=== PATIENT | male | born 1970 | race Caucasian/White ===

== ENCOUNTER → 2022-03-19 | Outpatient (CLI) | payer OTHER ==
[2022-03-19 15:28] LABS: BASOPHILS ABSOLUTE AUTO 0.05 K/mm3 (0.00-0.23); BASOPHILS PERCENT AUTO 1 % (0-2); EOSINOPHILS ABSOLUTE AUTO 0.06 K/mm3 (0.00-0.68); EOSINOPHILS PERCENT AUTO 1 % (0-6); Hematocrit 46.4 % (37.0-53.0); Hemoglobin 16.6 g/dL (13.5-17.5); IMMATURE GRAN ABSOLUTE AUTO 0.02 K/mm3 (0.00-0.10); IMMATURE GRAN PERCENT AUTO 0 % (0-1); LYMPHOCYTES ABSOLUTE AUTO 2.78 K/mm3 (0.84-5.20); LYMPHOCYTES PERCENT AUTO 35 % (21-46); MONOCYTES ABSOLUTE AUTO 0.64 K/mm3 (0.16-1.47); MONOCYTES PERCENT AUTO 8 % (4-13); Mean Corpuscular HGB 31.9 pg (26.0-34.0); Mean Corpuscular HGB Conc 35.8 g/dL (31.5-36.5); Mean Corpuscular Volume 89 fL (80-100); NEUTROPHILS ABSOLUTE AUTO 4.42 K/mm3 (1.96-9.15); NEUTROPHILS PERCENT AUTO 55 % (41-73); Platelet Count 261 K/mm3 (150-400); RDW Coefficient Variation 12.1 % (11.7-14.2); RDW Standard Deviation 39.9 fL (35.1-46.3); White Blood Cell Count 7.97 K/mm3 (4.00-11.30)
[2022-03-19 15:45] LABS: Albumin, Blood 4.1 g/dL (3.4-5.0); Albumin/Globulin Ratio 1.2 (0.8-1.8); Bilirubin, Total 1.1 mg/dL (0.1-1.0); Bun/Creatinine Ratio 15.1 (12.0-20.0); Calcium, Blood 9.1 mg/dL (8.5-10.1); Creatinine, Blood 0.86 mg/dL (0.60-1.20); Globulin, Blood 3.4 g/dL (2.2-4.0); Potassium, Blood 4.2 mmol/L (3.5-5.5); Total Protein, Blood 7.5 g/dL (6.4-8.2)
== END ==
LOC: LAB SHORT 15:21
PROVIDERS: Physician Assistant
DX: E11.9 Type 2 diabetes mellitus without complications (principal); R53.83 Other fatigue
CPT/HCPCS: 80053; 83036; 83690; 85025

== ENCOUNTER 2023-09-18 17:44 | Observation (INO) | payer BC, OTHER ==
[~2023-09-18] VITALS: Ht 180.3 cm; Wt 127.0 kg
[2023-09-18 18:09] LABS: BASOPHILS ABSOLUTE AUTO 0.08 K/mm3 (0.00-0.23); BASOPHILS PERCENT AUTO 1 % (0-2); EOSINOPHILS ABSOLUTE AUTO 0.15 K/mm3 (0.00-0.68); EOSINOPHILS PERCENT AUTO 1 % (0-6); Hematocrit 49.4 % (37.0-53.0); IMMATURE GRAN ABSOLUTE AUTO 0.06 K/mm3 (0.00-0.10); IMMATURE GRAN PERCENT AUTO 0 % (0-1); LYMPHOCYTES ABSOLUTE AUTO 5.19 K/mm3 (0.84-5.20); LYMPHOCYTES PERCENT AUTO 31 % (21-46); MONOCYTES ABSOLUTE AUTO 1.35 K/mm3 (0.16-1.47); MONOCYTES PERCENT AUTO 8 % (4-13); Mean Corpuscular HGB Conc 34.4 g/dL (31.5-36.5); Mean Corpuscular Volume 90 fL (80-100); Mean Platelet Volume 9.5 fL (9.1-12.4); NEUTROPHILS ABSOLUTE AUTO 9.98 K/mm3 (1.96-9.15); NEUTROPHILS PERCENT AUTO 59 % (41-73); Platelet Count 350 K/mm3 (150-400); RDW Coefficient Variation 12.1 % (11.7-14.2); RDW Standard Deviation 40.2 fL (35.1-46.3); Red Blood Cell Count 5.48 M/mm3 (4.30-5.90); White Blood Cell Count 16.81 K/mm3 (4.00-11.30)
[2023-09-18 18:35] LABS: Albumin, Blood 3.9 g/dL (3.4-5.0); Bilirubin, Total 1.1 mg/dL (0.1-1.0); Bun/Creatinine Ratio 14.9 (12.0-20.0); Calcium, Blood 9.2 mg/dL (8.5-10.1); Creatinine, Blood 0.67 mg/dL (0.60-1.20); Globulin, Blood 4.1 g/dL (2.2-4.0); Potassium, Blood 3.7 mmol/L (3.5-5.5)
[2023-09-18] MEDS ORDERED: METFORMIN HCL500 M2 PO (20:20)
[2023-09-18] MEDS ORDERED: LISI20 PO (20:20)
[2023-09-18 20:52] LABS: Source, Urine Clean Catch
[2023-09-18 21:22] LABS: Bilirubin, Urine Neg (Neg); Blood, Urine Neg (Neg); Glucose Qualitative, Urine Neg (Neg); Ketones, Urine 3+ (Neg); Leukocyte Esterase, Urine Neg (Neg); Nitrite, Urine Neg (Neg); Protein, Urine Neg (Neg); Urobilinogen, Urine NORM (Normal)
[2023-09-18 21:28] LABS: Appearance, Urine Clear (Clear); Color, Urine Yellow (P-Yellow)
[2023-09-19] VITALS (17 sets, daily range): BP systolic 110–146; BP diastolic 65–92
[2023-09-19 04:57] LABS: Hematocrit 44.1 % (37.0-53.0); Hemoglobin 15.2 g/dL (13.5-17.5); Mean Corpuscular HGB 31.1 pg (26.0-34.0); Mean Corpuscular HGB Conc 34.5 g/dL (31.5-36.5); Mean Corpuscular Volume 90 fL (80-100); Mean Platelet Volume 9.7 fL (9.1-12.4); Platelet Count 305 K/mm3 (150-400); RDW Coefficient Variation 12.3 % (11.7-14.2); RDW Standard Deviation 40.4 fL (35.1-46.3); Red Blood Cell Count 4.89 M/mm3 (4.30-5.90)
[2023-09-19 05:21] LABS: Bun/Creatinine Ratio 14.7 (12.0-20.0); Creatinine, Blood 0.68 mg/dL (0.60-1.20); Potassium, Blood 4.1 mmol/L (3.5-5.5)
--- NOTE | 2023-09-19 10:21 | NUR ---
PT HAS 20G IV TO RIGHT AC THAT FLUSHES WELL AND FLOWS TO GRAVITY.
--- NOTE | 2023-09-19 15:40 | NUR ---
REPORT FROM WINSTON PEÑA RN. PT AXOX4, REPORTS 5-6/10 BURNING PAIN IN MID TO LOW CENTER ABDOMEN. PT APPEARS DIAPHORETIC AND UNCOMFORTABLE, REPORTS FEELING "AFRAID TO MOVE". PT OFFERED AN ICE PACK AND ORAL PAIN MEDICATION FOR RELIEF. PT AT BEDSIDE.
--- NOTE | 2023-09-19 16:00 | NUR ---
CHARGE NURSE CONSULTED ABOUT PT'S PAIN MANAGEMENT, DR. KIM NOTIFIED AND AGREES TO PT BEING ADMITTED TO SURGICAL FLOOR INSTEAD OF DISCHARGED TO HOME. SURGICAL FLOOR CABIN EQUIPMENT SUPERVISOR NOTIFIED, WAITING FOR A BED. PT REPORTS PAIN ESCALATING TO A 6/10 BURNING CONSTANT PAIN, PT GIVEN PO PAIN MEDICATION AND ICE PACK.
--- NOTE | 2023-09-19 18:47 | NUR ---
PT ARRIVED TO UNIT AT APROX 1645 FROM PACU. PT STAND TRANSFER FROM [facility] TO BED W/MINIMAL ASSIST. PT PAINFUL UPON ARRIVAL BUT TOLERABLE. PT PREV MEDICATED IN STEP DOWN WITH 1 PERCOCET IN ADDITION TO 1MG DILAUDID AND 100MCG FENTANYL IN PACU PRIOR TO GOING TO STEP DOWN. PT GIVEN SECOND 5/325MG PERCOCET AND REPORTS PAIN TOLERABLE AT THIS TIME. TOLERATED SMALL AMT REGULAR DIET WITH NO N/V, SALINE LOCKED. PLAN TO DC HOME TOMORROW.
[2023-09-20 00:26] VITALS: BP 108/73
[2023-09-20 03:29] VITALS: BP 109/70
--- NOTE | 2023-09-20 04:28 | NUR ---
SHIFT SUMMARY POD 1 LAP UMBILICAL HERNIA REPAIR PT ABLE TO REST T/O NIGHT. PAIN MANAGED PER EMAR. TOLERATING PO INTAKE. VOIDING. X5 LAP SITES, C/D/I. PASSING LITTLE GAS. PLAN FOR D/C TODAY. NO OTHER CONCERNS AT THIS TIME. CALL LIGHT WITHIN REACH.
[2023-09-20 05:08] LABS: BASOPHILS ABSOLUTE AUTO 0.02 K/mm3 (0.00-0.23); BASOPHILS PERCENT AUTO 0 % (0-2); EOSINOPHILS ABSOLUTE AUTO 0.01 K/mm3 (0.00-0.68); EOSINOPHILS PERCENT AUTO 0 % (0-6); Hematocrit 42.8 % (37.0-53.0); Hemoglobin 14.6 g/dL (13.5-17.5); IMMATURE GRAN ABSOLUTE AUTO 0.07 K/mm3 (0.00-0.10); IMMATURE GRAN PERCENT AUTO 0 % (0-1); LYMPHOCYTES ABSOLUTE AUTO 2.66 K/mm3 (0.84-5.20); LYMPHOCYTES PERCENT AUTO 17 % (21-46); MONOCYTES ABSOLUTE AUTO 1.12 K/mm3 (0.16-1.47); MONOCYTES PERCENT AUTO 7 % (4-13); Mean Corpuscular HGB 31.1 pg (26.0-34.0); Mean Corpuscular HGB Conc 34.1 g/dL (31.5-36.5); Mean Corpuscular Volume 91 fL (80-100); Mean Platelet Volume 9.4 fL (9.1-12.4); NEUTROPHILS PERCENT AUTO 75 % (41-73); Platelet Count 311 K/mm3 (150-400); RDW Coefficient Variation 12.4 % (11.7-14.2); RDW Standard Deviation 41.1 fL (35.1-46.3); Red Blood Cell Count 4.69 M/mm3 (4.30-5.90); White Blood Cell Count 15.58 K/mm3 (4.00-11.30)
[2023-09-20 05:42] LABS: Albumin, Blood 3.2 g/dL (3.4-5.0); Anion Gap 5 mmol/L (6-16); Blood Urea Nitrogen 11 mg/dL (8-24); Bun/Creatinine Ratio 17.5 (12.0-20.0); CO2, Blood 26 mmol/L (21-32); Calcium, Blood 8.3 mg/dL (8.5-10.1); Chloride, Blood 108 mmol/L (98-108); Creatinine, Blood 0.63 mg/dL (0.60-1.20); Glomerular Filtration Rate 112 (60-); Glucose, Blood 139 mg/dL (70-99); Magnesium, Blood 2.3 mg/dL (1.6-2.4); Potassium, Blood 4.1 mmol/L (3.5-5.5); Sodium, Blood 139 mmol/L (136-145)
[2023-09-20 07:06] VITALS: BP 110/74
--- NOTE | 2023-09-20 10:37 | NUR ---
DISCHARGE SUMMARY A/O X4- IND IN THE ROOM. POD1 LAP HERNIA REPAIR W/ MESH. ABDOMINAL LAP SITES C/D/I. NO PAIN REPORTED AT THIS TIME. TOLERATING PO INTAKE. VOIDING WELL. WRITTEN AND VERBAL DISCHARGE INSTRUCTIONS GIVEN, PATIENT AGREEABLE TO DISCHARGE.
--- NOTE | 2023-09-20 11:05 | NUR ---
IV MED DIFLUCAN FINISHED, REMOVED IV W/ CATH TIP INTACT. MEDICATED FOR ABDOMINAL PAIN. PATIENT BELONGINGS GATHERED AND SENT OUT WITH PATIENT. PATIENT WHEELED OUT IN W/C TO [facility] [employer] VEHICLE.
== END 2023-09-20 11:04 | disposition home or self-care (01) ==
LOC: ER 17:44 → ERHOLD 21:08 → SURS 21:08
PROVIDERS: Family Medicine; Nurse Practitioner Acute Care; Student in an Organized Health Care Education/Training Program; Surgery; ADMIT Internal Medicine
PROC: 0WQF4ZZ Repair Abdominal Wall, Percutaneous Endoscopic Approach (ICD-10-PCS; principal; 2023-09-19 12:30)
DX: K42.0 Umbilical hernia with obstruction, without gangrene (principal); E11.9 Type 2 diabetes mellitus without complications; I10 Essential (primary) hypertension; E66.01 Morbid (severe) obesity due to excess calories; Z79.84 Long term (current) use of oral hypoglycemic drugs; Z79.899 Other long term (current) drug therapy
CPT/HCPCS: 36415; 74177; 80048; 80053; 80069; 81003; 82947; 83605; 83690; 83735; 85025; 85027; 93005; 93010; 96361; 96374-59; 96375; 99285-25; A9270; C1781; G0378; J0690; J1170; J1450; J2405; J3010; J7030; J7120; Q9967